=== PATIENT | female | born 1960 | race Two or more races ===

== ENCOUNTER → 2024-06-29 | Outpatient (CLI) | payer BC, SELFPAY ==
[2024-06-29 16:21] LABS: Basophils % (Auto) 1 % (0-2.5); Eosinophils # (Auto) 0.1 Thou/mm3 (0.0-0.5); Eosinophils % (Auto) 1 % (0-10); Hematocrit 40.5 % (36.0-46.0); Hemoglobin 13.7 g/dL (12.0-16.0); Immature Granulocytes % (Auto) 0 % (0-0); Immature Granulocytes Auto 0.01 Thou/mm3 (0.00-0.00); Lymphocytes # (Auto) 1.6 Thou/mm3 (1.0-4.8); Lymphocytes % (Auto) 29 % (10-50); Mean Corpuscular HGB Conc 33.8 g/dl (31.0-37.0); Mean Corpuscular Hemoglobin 30.6 pg (25.0-35.0); Mean Corpuscular Volume 91 fL (80-100); Monocytes # (Auto) 0.4 Thou/mm3 (0.0-0.8); Monocytes % (Auto) 8 % (0-12); Neutrophils # (Auto) 3.4 Thou/mm3 (1.8-7.7); Neutrophils % (Auto) 61 % (37-80); Nucleated Red Blood Cell % 0 /100 WBC (0); Platelet Count 253 Thou/mm3 (140-440); RDW Standard Deviation 41.1 fL (36.4-46.3); Red Blood Count 4.47 Miln/mm3 (4.00-5.20); White Blood Count 5.6 Thou/mm3 (3.6-11.0)
[2024-06-29 16:37] LABS: Alanine Aminotransferase 13 U/L (10-49); Albumin, Serum 4.1 gm/dL (3.4-4.8); Alkaline Phosphatase 68 U/L (46-116); Anion Gap 3 (7-16); Aspartate Amino Transferase 15 U/L (0-34); BUN/Creatinine Ratio 16 Ratio (12-20); Bilirubin,Total 0.3 mg/dL (0.3-1.2); Blood Urea Nitrogen 13 mg/dL (9-23); Calcium 9.2 mg/dL (8.3-10.6); Calcium (Corrected) 9.2 mg/dL (8.5-10.1); Carbon Dioxide 29.8 mMol/L (20.0-31.0); Chloride 107 mMol/L (98-107); Creatinine (Component) 0.8 mg/dL (0.6-1.3); Globulin 2.1 gm/dL (2.3-3.5); Glucose 94 mg/dL (74-106); Osmolality,Calculated 279 (275-295); Potassium 4.1 mMol/L (3.4-5.1); Sodium 140 mMol/L (136-145); Total Protein 6.2 gm/dL (5.7-8.2); eGFR > 60 See Note
== END | disposition home or self-care (01) ==
LOC: SCTO 15:31
PROVIDERS: PCP Family Medicine; Referring Provider Internal Medicine Hematology & Oncology; Visit Provider Internal Medicine Hematology & Oncology
DX: C50.411 Malignant neoplasm of upper-outer quadrant of right female breast (principal)
CPT/HCPCS: 36415; 80053; 85025

== ENCOUNTER 2024-06-30 15:35 | Outpatient (RCR) | payer BC, SELFPAY ==
--- NOTE | 2024-07-10 20:40 | CTCFLWUP_ITS ---
Patient: EMILY STEVEN : 1960 Page 2 of 2 FOLLOW UP NOTE DATE OF SERVICE: 06/30/2024 NAME: EMILY STEVEN ACCOUNT: [id number] : 1960 AGE: 62 DIAGNOSIS: Stage IIb ER positive, IL positive HER-2/mohinder negative invasive ductal carcinoma of the rig ht breast (05/07/2009) completed 10 years of anti-hormonal therapy (10/04/2019). REASON FOR TODAY?S VISIT: This is office follow-up visit. Ms. Steven is here at [facility]. She is clinically doing very well. Denies any complaints. Denies any cough, chest pain, abdominal pain or leg cramps. She is due for her left breast mammogram this month. She is ambulating well without any help. Has good appetite and good energy levels. HISTORY OF PRESENT ILLNESS: Emily Steven is a 62-year-old Telugu-speaking female with fo llowing breast cancer history. 05/07/2009: Patient had a right breast mass excision biopsy biopsy which showed 6.5 x 5.5 x 4.0 cm poo rly differentiated infiltrating ductal carcinoma with lobular carcinoma in situ involving 10% of the tumor. Tumor was E R positive IL positive and HER-2/mohinder negative. 05/17/2009: Right breast modified radical mastectomy was performed. Surgical pathology specimen showe d residual carcinoma. No lymphovascular invasion was identified. 15 right axillary lymph nodes were negative f or metastatic disease. It was staged as pT3 N0 cM0 disease. Following the surgery patient was treated with adjuva nt chemotherapy. She continued on tamoxifen from September 2009 through December 2011 at which point tamoxifen was discontin ued and she was started on Femara. She continues to take Femara since then. 10/04/2019: Letrozole discontinued. Patient has taken anti-hormonal therapy for 10 years. PAST MEDICAL HISTORY: PAST SURGICAL HISTORY: MEDICATIONS: 1. Calcium 600 + D(3) - 1 tab Every other day 2. Zoloft - 50 mg Each Day?Palabra Meds? Medications Last Reconciled by Mary Martini MA on 07/02/2023 ALLERGIES: No Known Drug Allergies REVIEW OF SYSTEMS:?Clone ROS? Neurological: No headache, seizures or blurring of vision. Gastrointestinal: No nausea, vomiting, diarrhea or constipation. Cardiovascular: No palpitations or angina pains. Respiratory: No cough, chest pain or shortness of breath. PHYSICAL EXAMINATION:?ClonePE? VITAL SIGNS: Temperature?97.7, B/P?143/86, Oxygen?Saturation?97% Weight?176?lbs PAIN: 0 - No pain Vitals reviewed Patient alert oriented x 4 S1-S2 Bilateral clear to auscultation No palpable mass in the chest or axilla. LABORATORY DATA: Date Time ASSESSMENT: History of stage IIb ER positive, IL positive HER-2/mohinder negative invasive ductal carcinoma of the rig ht breast Completed 10 years of adjuvant anti-hormonal therapy. No clinical evidence of recurrence left breast screening mammogram annually. I will see her back in clinic in 1 year with CBC, CMP, CEA, CA 15?3 done few days prior to the visit. Electronically Signed by: {Object.Sanct_ID*PnP.NameFL@M}, {Object.Sanct_ID*PnP.Suffix@U} D: {Object.Sanct_Date} T: {Object.Sanct_Time} CC: PCP: Referring: This document was completed utilizing speech recognition software. Grammatical errors, random word in sertions, pronoun errors, and incomplete sentences are an occasional consequence of this system due t o software limitations, ambient noise, and hardware issues. Any formal questions or concerns about th e content, text or information contained within the body of this dictation should be directly address ed to the provider for clarification.
== END 2024-07-23 23:59 | disposition home or self-care (01) ==
LOC: SCTC 15:35
PROVIDERS: PCP Registered Nurse; Referring Provider Registered Nurse; Visit Provider Internal Medicine Hematology & Oncology
DX: Z08 Encounter for follow-up examination after completed treatment for malignant neoplasm (principal); Z85.3 Personal history of malignant neoplasm of breast; Z90.11 Acquired absence of right breast and nipple; Z92.29 Personal history of other drug therapy
CPT/HCPCS: 99212; G0463

== ENCOUNTER → 2025-02-10 | Outpatient (CLI) | payer BC, SELFPAY ==
--- NOTE | 2025-02-10 12:00 | XR_ITS ---
Examination: Ultrasound soft tissue right chest TECHNIQUE: Grayscale sonographic images soft tissue right chest Date and time: February 10, 2025 1155 hours INDICATION: Palpable lump right chest noticed beginning 5 months ago FINDINGS: Spiculated oval mass right chest region 5.2 x 1.5 x 1.7 cm IMPRESSION: Spiculated oval mass at the area concern right chest near the mastectomy incision, 5.2 x 1.5 x 1.7 cm, recommend bilateral breast sonography, CT chest post intravenous contrast follow-up
== END | disposition home or self-care (01) ==
LOC: CDIM 11:41
PROVIDERS: PCP Nurse Practitioner Family; Referring Provider Nurse Practitioner Family; Visit Provider Nurse Practitioner Family
DX: N63.10 Unspecified lump in the right breast, unspecified quadrant (principal)
CPT/HCPCS: 76604

== ENCOUNTER → 2025-02-16 | Outpatient (CLI) | payer BC, SELFPAY ==
[2025-02-16 18:22] LABS: CA 15-3 3.9 U/mL (<32.4); Carcinoembryonic Antigen 1.2 ng/mL (0.0-5.0)
== END | disposition home or self-care (01) ==
PROVIDERS: PCP Nurse Practitioner Family; Referring Provider Nurse Practitioner Family; Visit Provider Nurse Practitioner Family
DX: N63.10 Unspecified lump in the right breast, unspecified quadrant (principal); R53.83 Other fatigue; R92.8 Other abnormal and inconclusive findings on diagnostic imaging of breast; Z85.3 Personal history of malignant neoplasm of breast
CPT/HCPCS: 36415; 82378; 86300; 86304

== ENCOUNTER → 2025-02-21 | Outpatient (CLI) | payer BC, SELFPAY ==
[2025-02-21 13:03] LABS: Alanine Aminotransferase 11 U/L (10-49); Albumin, Serum 4.2 gm/dL (3.4-4.8); Albumin/Globulin Ratio 1.7 (1.2-2.2); Alkaline Phosphatase 58 U/L (46-116); Anion Gap 7 (7-16); Aspartate Amino Transferase 14 U/L (0-34); BUN/Creatinine Ratio 15 Ratio (12-20); Bilirubin,Total 0.5 mg/dL (0.3-1.2); Blood Urea Nitrogen 12 mg/dL (9-23); Calcium 9.2 mg/dL (8.3-10.6); Calcium (Corrected) 9.2 mg/dL (8.5-10.1); Carbon Dioxide 27.4 mMol/L (20.0-31.0); Chloride 108 mMol/L (98-107); Creatinine (Component) 0.8 mg/dL (0.6-1.3); Globulin 2.5 gm/dL (2.3-3.5); Glucose 96 mg/dL (74-106); Osmolality,Calculated 282 (275-295); Potassium 4.0 mMol/L (3.4-5.1); Sodium 142 mMol/L (136-145); Total Protein 6.7 gm/dL (5.7-8.2); eGFR > 60 See Note
== END | disposition home or self-care (01) ==
LOC: COPL 11:38
PROVIDERS: PCP Nurse Practitioner Family; Referring Provider Nurse Practitioner Family; Visit Provider Nurse Practitioner Family
DX: N63.10 Unspecified lump in the right breast, unspecified quadrant (principal); R92.8 Other abnormal and inconclusive findings on diagnostic imaging of breast; Z85.3 Personal history of malignant neoplasm of breast; R53.83 Other fatigue
CPT/HCPCS: 36415; 80053

== ENCOUNTER → 2025-02-22 | Outpatient (CLI) | payer BC, SELFPAY ==
--- NOTE | 2025-02-22 09:00 | XR_ITS ---
Examination: CT chest with intravenous contrast 2-D sagittal and coronal reconstructions Exam date and time: February 22, 2025 0958 hours Comparison July 06, 2009 INDICATIONS: Personal history right breast cancer mastectomy 2008, position diagnosis unspecified lump in the right breast 2 months CTDI:vol (mGy) 11 DLP: (mGycm) 397 Technique: Multiple axial sections of the thorax have been obtained. Sections have been obtained, 3 mm slice thickness. Mediastinal and lung density settings have been obtained. Intravenous contrast administered, 60 cc Isovue-370. 2-D sagittal, coronal images obtained. Low dose protocols were performed. One or more of the following dose reduction techniques were used; automated exposure control, adjustment of the mA and/or KV according to patient size, use of iterative reconstruction technique. Findings: Right breast retroareolar mass indistinct margins, measuring 24 mm x 26 mm, extending to the chest wall No axillary lymphadenopathy No thoracic aortic aneurysm dilatation No pulmonary artery filling defects No paratracheal tracheobronchial or bronchopulmonary adenopathy 2 mm pulmonary nodule left upper lobe image 127 No pneumonia or pulmonary edema No visualized liver or splenic lesion Cholelithiasis Prominent osteopenia IMPRESSION: Right breast retroareolar mass 24 x 26 mm extending to the chest wall, recommend diagnostic mammography, bilateral breast sonography follow-up 2 mm noncalcified pulmonary nodule left upper lobe, with this study as baseline recommend 6 month follow-up CT chest without contrast Cholelithiasis
== END | disposition home or self-care (01) ==
LOC: CCTX 09:02
PROVIDERS: PCP Family Medicine; Referring Provider Nurse Practitioner Family; Visit Provider Nurse Practitioner Family
DX: N63.41 Unspecified lump in right breast, subareolar (principal); R91.1 Solitary pulmonary nodule
CPT/HCPCS: 71260; A4649; Q9967

== ENCOUNTER → 2025-03-08 | Outpatient (CLI) | payer BC, SELFPAY ==
--- NOTE | 2025-03-08 10:30 | XR_ITS ---
Examination: Breast ultrasound complete, bilateral Date and time of exam: March 08, 2025 10:24 AM INDICATIONS: Personal history right breast cancer and mastectomy 2008, patient states palpable lump right breast 2:00 position with pain 5 months, ultrasound soft tissue February 10, 2025 spiculated oval mass right chest 5.2 x 1.7 cm Technique: Real-time grayscale ultrasonographic imaging bilateral breasts, including all 4 quadrants as well as nipple retroareolar and axillary regions. Findings: Sonographic images right breast 10:00 mass indistinct margins 4.1 x 3.0 x 2.8 cm Sonographic images left breast No cystic or solid mass IMPRESSION: BI-RADS Category 4: Suspicious for malignancy Recommend ultrasound-guided biopsy of 10:00 mass right breast indistinct margins 4.1 x 3.0 x 2.8 cm
== END | disposition home or self-care (01) ==
PROVIDERS: PCP Family Medicine; Referring Provider Nurse Practitioner Family; Visit Provider Nurse Practitioner Family
DX: N63.12 Unspecified lump in the right breast, upper inner quadrant (principal)
CPT/HCPCS: 76641

== ENCOUNTER → 2025-03-13 | Outpatient (CLI) | payer BC, SELFPAY ==
--- NOTE | 2025-03-13 10:00 | XR_ITS ---
Examination: Screening digital mammography, unilateral left Computer aided detection 3-D breast Tomosynthesis, unilateral Date and time of exam: March 13, 2025, 0954 hours Compared to mammograms dating to March 07, 2011 Indication: Screening Technique: Nonmagnified MLO, CC views of the left breast to been obtained, reconstructed from 3-D Tomosynthesis images. R2 computer aided detection program utilized for evaluation of suspicious masses and/or abnormal calcifications. 3-D Tomosynthesis images obtained. Findings: The breasts are heterogeneously dense, which may obscure small masses 4 mm nodule 9:00 position left breast Impression: BI-RADS Category 0: Incomplete: Need additional imaging evaluation Recommend follow-up spot tomographic views of 4 mm nodule 9:00 position left breast as well as left breast sonography to complete the workup.
== END | disposition home or self-care (01) ==
LOC: CDIM 09:39
PROVIDERS: Referring Provider Nurse Practitioner Family; Visit Provider Nurse Practitioner Family
DX: Z12.31 Encounter for screening mammogram for malignant neoplasm of breast (principal); N63.25 Unspecified lump in the left breast, overlapping quadrants
CPT/HCPCS: 77063; 77067

== ENCOUNTER → 2025-03-20 | Outpatient (CLI) | payer BC, SELFPAY ==
[2025-03-20 14:32] LABS: Basophils # (Auto) 0.0 Thou/mm3 (0.0-0.2); Basophils % (Auto) 1 % (0-2.5); Eosinophils # (Auto) 0.0 Thou/mm3 (0.0-0.5); Eosinophils % (Auto) 0 % (0-10); Hematocrit 43.7 % (36.0-46.0); Hemoglobin 14.8 g/dL (12.0-16.0); Immature Granulocytes Auto 0.02 Thou/mm3 (0.00-0.00); Lymphocytes # (Auto) 1.8 Thou/mm3 (1.0-4.8); Lymphocytes % (Auto) 24 % (10-50); Mean Corpuscular HGB Conc 33.9 g/dl (31.0-37.0); Mean Corpuscular Hemoglobin 31.0 pg (25.0-35.0); Mean Corpuscular Volume 91 fL (80-100); Monocytes # (Auto) 0.6 Thou/mm3 (0.0-0.8); Monocytes % (Auto) 8 % (0-12); Neutrophils # (Auto) 4.9 Thou/mm3 (1.8-7.7); Neutrophils % (Auto) 67 % (37-80); Nucleated Red Blood Cell # 0.00 Thou/mm3 (0.00-0.00); Nucleated Red Blood Cell % 0 /100 WBC (0); Platelet Count 272 Thou/mm3 (140-440); RDW Standard Deviation 40.6 fL (36.4-46.3); Red Blood Count 4.78 Miln/mm3 (4.00-5.20); White Blood Count 7.3 Thou/mm3 (3.6-11.0)
[2025-03-20 14:39] LABS: Alanine Aminotransferase 12 U/L (10-49); Albumin, Serum 4.6 gm/dL (3.4-4.8); Albumin/Globulin Ratio 1.9 (1.2-2.2); Alkaline Phosphatase 56 U/L (46-116); Anion Gap 9 (7-16); Aspartate Amino Transferase 15 U/L (0-34); BUN/Creatinine Ratio 16 Ratio (12-20); Bilirubin,Total 0.4 mg/dL (0.3-1.2); Blood Urea Nitrogen 13 mg/dL (9-23); Calcium 10.1 mg/dL (8.3-10.6); Calcium (Corrected) 10.1 mg/dL (8.5-10.1); Carbon Dioxide 27.5 mMol/L (20.0-31.0); Chloride 106 mMol/L (98-107); Creatinine (Component) 0.8 mg/dL (0.6-1.3); Globulin 2.4 gm/dL (2.3-3.5); Glucose 94 mg/dL (74-106); Osmolality,Calculated 283 (275-295); Potassium 4.1 mMol/L (3.4-5.1); Sodium 142 mMol/L (136-145); Total Protein 7.0 gm/dL (5.7-8.2); eGFR > 60 See Note
== END | disposition home or self-care (01) ==
LOC: SCTO 13:44
PROVIDERS: PCP Family Medicine; Referring Provider Internal Medicine Hematology & Oncology; Visit Provider Internal Medicine Hematology & Oncology
DX: C50.411 Malignant neoplasm of upper-outer quadrant of right female breast (principal)
CPT/HCPCS: 36415; 80053; 85025

== ENCOUNTER 2025-03-21 14:49 | Outpatient (RCR) | payer BC, SELFPAY ==
--- NOTE | 2025-04-02 21:24 | CTCFLWUP_ITS ---
Patient: EMILY HURT : 1960 Page 2 of 4 FOLLOW UP NOTE DATE OF SERVICE: 03/21/2025 NAME: EMILY HURT ACCOUNT: [id number] : 1960 AGE: 64 INTERVAL HISTORY: Patient is here to discuss right upper medial mastectomy scar biopsy which unfortunately has come back positive. ONCOLOGY HISTORY: DIAGNOSIS: Stage IIb ER positive, PA positive HER-2/mohinder negative invasive ductal carcinoma of the right breast (05/07/2009) completed 10 years of anti-hormonal therapy (10/04/2019). REASON FOR TODAY?S VISIT: Follow-up on the recent biopsy over the right upper medial mastectomy scar DATE OF DIAGNOSIS: 05/07/2009 STAGE/TNM: IIB T3 N0 M0 TREATMENT HISTORY: Care?Plan Start?Date Cycle Day Intent HISTORY OF PRESENT ILLNESS: Emily Hurt is a 64-year-old Citizen Of [place]-speaking female with following breast cancer history. 05/07/2009: Patient had a right breast mass excision biopsy biopsy which showed 6.5 x 5.5 x 4.0 cm poorly differentiated infiltrating ductal carcinoma with lobular carcinoma in situ involving 10% of the tumor. Tumor was ER positive PA positive and HER-2/mohinder negative. 05/17/2009: Right breast modified radical mastectomy was performed. Surgical pathology specimen showed residual carcinoma. No lymphovascular invasion was identified. 15 right axillary lymph nodes were negative for metastatic disease. It was staged as pT3 N0 cM0 disease. Following the surgery patient was treated with adjuvant chemotherapy. She continued on tamoxifen from September 2009 through December 2011 at which point tamoxifen was discontinued and she was started on Femara. She continues to take Femara since then. 10/04/2019: Letrozole discontinued. Patient has taken anti-hormonal therapy for 10 years. 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 Calcium 600 + D(3) - 1 tab Daily 2. Zoloft - 50 mg Each Day Medications Last Reconciled by Mary Martini MA on 03/21/2025 ALLERGIES: No Known Drug Allergies REVIEW OF SYSTEMS: A complete 14-point review of systems was performed and is negative except as noted in interval history. PHYSICAL EXAMINATION: VITAL SIGNS: Temperature?98.3, B/P?160/105, Oxygen?Saturation?97% Weight?164?lbs PAIN: 0 - No pain ECOG Performance Status: None Vitals reviewed Patient alert oriented x 4 S1-S2 Bilateral clear to auscultation No palpable mass in the chest or axilla. LABORATORY DATA: I have personally reviewed and interpreted each of the patient?s relevant lab tests, abnormal findings are below: Date 02/16/25 02/21/25 03/20/25 ??WHITE?BLOOD?COUNT?(Thou/mm3) ? ? 7.3 ??RED?BLOOD?COUNT?(Miln/mm3) ? ? 4.78 ??HEMOGLOBIN?(gm/dl) ? ? 14.8 ??HEMATOCRIT?(%) ? ? 43.7 ??PLATELET?COUNT?(Thou/mm3) ? ? 272 ??NEUTROPHILS?%,?AUTO?(%) ? ? 67 ??LYMPH?%,?AUTO?(%) ? ? 24 ??NEUTROPHILS,?AUTO?(Thou/mm3) ? ? 4.9 ??GLUCOSE,RANDOM?(mg/dL) ? 96 94 ??BLOOD?UREA?NITROGEN?(mg/dL) ? 12 13 ??CREATININE?(mg/dL) ? 0.80 0.80 ??SODIUM?(mmol/L) ? 142 142 ??POTASSIUM?(mmol/L) ? 4.0 4.1 ??CHLORIDE?(mmol/L) ? 108?H 106 ??CrCl?(CandG)?(ml/min) ? 88.76 88.76 ??AST/SGOT?(Unit/L) ? 14 15 ??ALT/SGPT?(Unit/L) ? 11 12 ??ALKALINE?PHOSPHATASE?(Unit/L) ? 58 56 ??BILIRUBIN,?TOTAL?(mg/dL) ? 0.5 0.4 ??PROTEIN?TOTAL?(gm/dl) ? 6.7 7.0 ??ALBUMIN,?SERUM?(gm/dl) ? 4.2 4.6 ??GLOBULIN?(gm/dl) ? 2.5 2.4 ??ALBUMIN/GLOBULIN?RATIO ? 1.7 1.9 ??CALCIUM,?SERUM?(mg/dL) ? 9.2 10.1 ??CALCIUM?SERUM?(CORRECTED)?(mg/dL) ? 9.2 10.1 ??CA?125?(O*)?(Unit/mL) 12.0 ? ? ASSESSMENT/PLAN: Recurrence of the right breast cancer Patient have a history of right breast cancer and that at that time was stage IIb which was hormone positive HER2 negative patient had resection in April 2009 followed by adjuvant chemotherapy. I do not have any data that what kind of chemotherapy patient received. Will get baseline echocardiogram Will do AC followed by Taxol Patient will be given ribociclib plus letrozole in adjuvant setting Patient have local recurrence Presented Dr. Tsai for opinion and port catheter placement Will start chemo JOSUÉ ORDERS: Order # Description [id number] Comprehensive Metabolic Panel - 12 + CBC with Auto Diff + CA 15-3 + MD Follow Up 4 Week RETURN TO CLINIC: I reviewed the diagnosis, prognosis, and recommended treatment/procedure options with the patient (and/or their legal artists' booking representative), including the potential benefits, risks, side effects and alternative therapies. We also discussed the option of no treatment and the possibility of clinical trial participation, if applicable. All questions were addressed, and they demonstrated understanding. They provided informed consent to proceed with the proposed plan of care. BILLING AND COMPLIANCE: I reviewed external records from providers outside my specialty as summarized above. I spent a total of 50 minutes on this patient?s care on the day of their visit excluding time spent related to any billed procedures. This time includes time spent with the patient as well as time spent documenting in the medical record, reviewing patients records and tests, obtaining history, placing orders, communicating with other healthcare professionals, counseling the patient, family or caregiver, and/or care coordination for the diagnoses above. Electronically Signed by: {Object.Sanct_ID*PnP.NameFL@M}, {Object.Sanct_ID*PnP.Suffix@U} D: {Object.Sanct_Date} T: {Object.Sanct_Time} CC: Kellee?Curtis,? PCP: Juwan Snow Referring: Juwan Snow This document was completed utilizing speech recognition software. Grammatical errors, random word insertions, pronoun errors, and incomplete sentences are an occasional consequence of this system due to software limitations, ambient noise, and hardware issues. Any formal questions or concerns about the content, text or information contained within the body of this dictation should be directly addressed to the provider for clarification.
== END 2025-03-23 23:59 | disposition home or self-care (01) ==
LOC: SCTC 14:49
PROVIDERS: PCP Family Medicine; Referring Provider Internal Medicine Hematology & Oncology; Visit Provider Internal Medicine Hematology & Oncology
DX: C50.811 Malignant neoplasm of overlapping sites of right female breast (principal)
CPT/HCPCS: 99212; G0463

== ENCOUNTER 2025-04-20 10:24 | Outpatient (RCR) | payer BC, SELFPAY ==
[2025-04-18 15:30] LABS: Basophils # (Auto) 0.0 Thou/mm3 (0.0-0.2); Basophils % (Auto) 1 % (0-2.5); Eosinophils # (Auto) 0.1 Thou/mm3 (0.0-0.5); Eosinophils % (Auto) 1 % (0-10); Hematocrit 41.2 % (36.0-46.0); Hemoglobin 13.9 g/dL (12.0-16.0); Immature Granulocytes Auto 0.02 Thou/mm3 (0.00-0.00); Lymphocytes # (Auto) 1.8 Thou/mm3 (1.0-4.8); Lymphocytes % (Auto) 27 % (10-50); Mean Corpuscular HGB Conc 33.7 g/dl (31.0-37.0); Mean Corpuscular Hemoglobin 31.0 pg (25.0-35.0); Mean Corpuscular Volume 92 fL (80-100); Monocytes # (Auto) 0.6 Thou/mm3 (0.0-0.8); Monocytes % (Auto) 8 % (0-12); Neutrophils # (Auto) 4.2 Thou/mm3 (1.8-7.7); Neutrophils % (Auto) 63 % (37-80); Nucleated Red Blood Cell # 0.00 Thou/mm3 (0.00-0.00); Nucleated Red Blood Cell % 0 /100 WBC (0); Platelet Count 254 Thou/mm3 (140-440); RDW Standard Deviation 41.2 fL (36.4-46.3); Red Blood Count 4.48 Miln/mm3 (4.00-5.20); White Blood Count 6.6 Thou/mm3 (3.6-11.0)
[2025-04-18 15:47] LABS: Alanine Aminotransferase 11 U/L (10-49); Albumin, Serum 4.2 gm/dL (3.4-4.8); Albumin/Globulin Ratio 2.0 (1.2-2.2); Alkaline Phosphatase 62 U/L (46-116); Anion Gap 10 (7-16); Aspartate Amino Transferase 13 U/L (0-34); BUN/Creatinine Ratio 13 Ratio (12-20); Bilirubin,Total 0.5 mg/dL (0.3-1.2); Blood Urea Nitrogen 12 mg/dL (9-23); Calcium 10.1 mg/dL (8.3-10.6); Calcium (Corrected) 10.1 mg/dL (8.5-10.1); Carbon Dioxide 26.4 mMol/L (20.0-31.0); Chloride 106 mMol/L (98-107); Creatinine (Component) 0.9 mg/dL (0.6-1.3); Globulin 2.1 gm/dL (2.3-3.5); Glucose 94 mg/dL (74-106); Osmolality,Calculated 282 (275-295); Potassium 3.5 mMol/L (3.4-5.1); Sodium 142 mMol/L (136-145); Total Protein 6.3 gm/dL (5.7-8.2); eGFR > 60 See Note
[2025-04-18 16:06] LABS: CA 15-3 7.0 U/mL (<32.4)
== END 2025-04-23 23:59 | disposition home or self-care (01) ==
LOC: SCTC 10:24
PROVIDERS: PCP Family Medicine; Referring Provider Family Medicine; Visit Provider Internal Medicine Hematology & Oncology
DX: Z51.11 Encounter for antineoplastic chemotherapy (principal); C50.811 Malignant neoplasm of overlapping sites of right female breast; Z17.0 Estrogen receptor positive status [ER+]; Z17.21 Progesterone receptor positive status; Z17.32 Human epidermal growth factor receptor 2 negative status
CPT/HCPCS: 36591; 80053; 85025; 86300; 96367; 96372; 96375; 96413; 96417; A4216; J1100; J1453; J1642; J2405; J2506; J7040; J7050; J9000; J9075

== ENCOUNTER 2025-05-18 11:33 | Outpatient (RCR) | payer BC, SELFPAY ==
[2025-05-02 16:47] LABS: Collection Type, Urine Voided
[2025-05-02 16:57] LABS: Basophils # (Auto) 0.1 Thou/mm3 (0.0-0.2); Basophils % (Auto) 1 % (0-2.5); Eosinophils # (Auto) 0.0 Thou/mm3 (0.0-0.5); Eosinophils % (Auto) 0 % (0-10); Hematocrit 36.0 % (36.0-46.0); Hemoglobin 12.1 g/dL (12.0-16.0); Immature Granulocytes Auto 0.80 Thou/mm3 (0.00-0.00); Lymphocytes # (Auto) 1.5 Thou/mm3 (1.0-4.8); Lymphocytes % (Auto) 22 % (10-50); Mean Corpuscular HGB Conc 33.6 g/dl (31.0-37.0); Mean Corpuscular Hemoglobin 30.4 pg (25.0-35.0); Mean Corpuscular Volume 91 fL (80-100); Monocytes # (Auto) 0.5 Thou/mm3 (0.0-0.8); Monocytes % (Auto) 7 % (0-12); Neutrophils # (Auto) 4.2 Thou/mm3 (1.8-7.7); Neutrophils % (Auto) 59 % (37-80); Nucleated Red Blood Cell # 0.00 Thou/mm3 (0.00-0.00); Nucleated Red Blood Cell % 0 /100 WBC (0); Platelet Count 274 Thou/mm3 (140-440); RDW Standard Deviation 38.9 fL (36.4-46.3); Red Blood Count 3.98 Miln/mm3 (4.00-5.20); White Blood Count 7.1 Thou/mm3 (3.6-11.0)
[2025-05-02 17:18] LABS: Anion Gap 11 (7-16); Blood Urea Nitrogen 6 mg/dL (9-23); Carbon Dioxide 26.6 mMol/L (20.0-31.0); Chloride 103 mMol/L (98-107); Creatinine (Component) 0.9 mg/dL (0.6-1.3); Potassium 3.8 mMol/L (3.4-5.1); Sodium 141 mMol/L (136-145)
[2025-05-02 17:19] LABS: Alanine Aminotransferase 11 U/L (10-49); Albumin, Serum 3.6 gm/dL (3.4-4.8); Albumin/Globulin Ratio 1.7 (1.2-2.2); Alkaline Phosphatase 58 U/L (46-116); Aspartate Amino Transferase 16 U/L (0-34); BUN/Creatinine Ratio 7 Ratio (12-20); Bilirubin,Total 0.2 mg/dL (0.3-1.2); Calcium 9.2 mg/dL (8.3-10.6); Calcium (Corrected) 9.5 mg/dL (8.5-10.1); Globulin 2.1 gm/dL (2.3-3.5); Glucose 95 mg/dL (74-106); Osmolality,Calculated 278 (275-295); Total Protein 5.7 gm/dL (5.7-8.2); eGFR > 60 See Note
[2025-05-02 17:28] LABS: Bacteria,Urine Rare; Bilirubin,Urine Negative (Negative); Blood,Urine Negative (Negative); Clarity,Urine Clear (Clear/Hazy); Color,Urine Colorless (Lt Yel-Yel); Glucose, Urine Negative (Negative); Ketones,Urine Negative (Negative); Leukocyte Esterase,Urine Negative (Negative); Nitrite,Urine Negative (Negative); PH,Urine 6.5 (5.0-7.0); Protein,Urine Negative (Neg - Trace); RBC,Urine < 1 /hpf (0-3); Specific Gravity,Urine 1.004 (1.001-1.035); Squamous Epithelial Cell,Urine < 1 /hpf (0-5); Urobilinogen,Urine Negative mg/dL (0.0-1.0); WBC,Urine 5 /hpf (0-5)
[2025-05-02 20:55] LABS: CA 15-3 4.9 U/mL (<32.4)
[2025-05-16 12:39] LABS: Basophils # (Auto) 0.1 Thou/mm3 (0.0-0.2); Basophils % (Auto) 1 % (0-2.5); Eosinophils # (Auto) 0.0 Thou/mm3 (0.0-0.5); Eosinophils % (Auto) 0 % (0-10); Hematocrit 35.5 % (36.0-46.0); Hemoglobin 12.4 g/dL (12.0-16.0); Immature Granulocytes Auto 1.61 Thou/mm3 (0.00-0.00); Lymphocytes # (Auto) 1.4 Thou/mm3 (1.0-4.8); Lymphocytes % (Auto) 14 % (10-50); Mean Corpuscular HGB Conc 34.9 g/dl (31.0-37.0); Mean Corpuscular Hemoglobin 30.7 pg (25.0-35.0); Mean Corpuscular Volume 88 fL (80-100); Monocytes # (Auto) 0.8 Thou/mm3 (0.0-0.8); Monocytes % (Auto) 8 % (0-12); Neutrophils # (Auto) 6.0 Thou/mm3 (1.8-7.7); Neutrophils % (Auto) 61 % (37-80); Nucleated Red Blood Cell # 0.00 Thou/mm3 (0.00-0.00); Nucleated Red Blood Cell % 0 /100 WBC (0); Platelet Count 221 Thou/mm3 (140-440); RDW Standard Deviation 39.4 fL (36.4-46.3); Red Blood Count 4.04 Miln/mm3 (4.00-5.20); White Blood Count 9.9 Thou/mm3 (3.6-11.0)
[2025-05-16 13:07] LABS: Alanine Aminotransferase 13 U/L (10-49); Albumin, Serum 4.0 gm/dL (3.4-4.8); Albumin/Globulin Ratio 2.0 (1.2-2.2); Alkaline Phosphatase 61 U/L (46-116); Anion Gap 8 (7-16); Aspartate Amino Transferase 13 U/L (0-34); BUN/Creatinine Ratio 8 Ratio (12-20); Bilirubin,Total 0.2 mg/dL (0.3-1.2); Blood Urea Nitrogen 6 mg/dL (9-23); Calcium 10.0 mg/dL (8.3-10.6); Calcium (Corrected) 10.0 mg/dL (8.5-10.1); Carbon Dioxide 28.5 mMol/L (20.0-31.0); Chloride 104 mMol/L (98-107); Creatinine (Component) 0.8 mg/dL (0.6-1.3); Globulin 2.0 gm/dL (2.3-3.5); Glucose 103 mg/dL (74-106); Osmolality,Calculated 277 (275-295); Potassium 3.7 mMol/L (3.4-5.1); Sodium 140 mMol/L (136-145); Total Protein 6.0 gm/dL (5.7-8.2); eGFR > 60 See Note
[2025-05-16 13:21] LABS: CA 15-3 5.6 U/mL (<32.4)
[2025-05-16 15:12] LABS: Path Review Blood Smear Sent to Pathologist
--- NOTE | 2025-05-21 23:41 | CTCFLWUP_ITS ---
Patient: EMILY HURT : 1960 Page 2 of 3 FOLLOW UP NOTE DATE OF SERVICE: 05/15/2025 NAME: EMILY HURT ACCOUNT: [id number] : 1960 AGE: 64 INTERVAL HISTORY: Emily Hurt, a 64-year-old female, presented for management of recurrent breast cancer. Her history includes breast cancer in 2008 treated with mastectomy and 5 years of tamoxifen. Currently undergoing neoadjuvant chemotherapy with plans for four intensive cycles followed by weekly Taxol treatments. Small lymph nodules in liver and lungs are being monitored. The treatment plan includes completing chemotherapy, surgery with Dr. Peters, radiation therapy, anti-endocrine therapy with ribociclib, Mercedes testing, and using cold therapy during Taxol infusions to prevent worsening of pre-existing neuropathy. ONCOLOGY HISTORY: DIAGNOSIS: Stage IIb ER positive, [place] positive HER-2/mohinder negative invasive ductal carcinoma of the right breast (05/07/2009) completed 10 years of anti-hormonal therapy (10/04/2019). REASON FOR TODAY?S VISIT: Follow-up on the recent biopsy over the right upper medial mastectomy scar DATE OF DIAGNOSIS: 05/07/2009 STAGE/TNM: IIB T3 N0 M0 TREATMENT HISTORY: Care?Plan Start?Date Cycle Day Intent AC?4?cy?DD?Taxol?wkly?12?wks 04/09/2025 2 7 Induction-Primary HISTORY OF PRESENT ILLNESS: Emily Hurt is a 64-year-old Zimbabwean-speaking female with following breast cancer history. 05/07/2009: Patient had a right breast mass excision biopsy biopsy which showed 6.5 x 5.5 x 4.0 cm poorly differentiated infiltrating ductal carcinoma with lobular carcinoma in situ involving 10% of the tumor. Tumor was ER positive KS positive and HER-2/mohinder negative. 05/17/2009: Right breast modified radical mastectomy was performed. Surgical pathology specimen showed residual carcinoma. No lymphovascular invasion was identified. 15 right axillary lymph nodes were negative for metastatic disease. It was staged as pT3 N0 cM0 disease. Following the surgery patient was treated with adjuvant chemotherapy. She continued on tamoxifen from September 2009 through December 2011 at which point tamoxifen was discontinued and she was started on Femara. She continues to take Femara since then. 10/04/2019: Letrozole discontinued. Patient has taken anti-hormonal therapy for 10 years. 03/13/2025 mammogram showed 4 mm nodule at the left breast 03/08/2024 over the mastectomy site site showed 4.1 x 3 x 2.8 cm indistinct mass margin ultrasound-guided biopsy of the mass was completed and showed invasive lobular carcinoma 02/22/2025 CT scan of the chest showed a 24 x 26 mm right breast retroareolar areolar mass extending to the chest wall and 2 mm nodule in the left upper lobe imaging 127 no other lesions noted 03/16/2025 reoccurrence of invasive lobular carcinoma with pleomorphic features ER/KS positive HER2 negative over the upper medial mastectomy scar no lymphovascular invasion identified at least T1c OTHER MEDICAL HISTORY/CONDITIONS: FAMILY HISTORY: 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 Calcium 600 + D(3) - 1 tab Daily 2. dexamethasone - 4 mg 2 tab Daily 3. Emend - 125 mg (1)- 80 mg (2) 1 Capsule Daily 4. Lidocaine Viscous - 2 % 5 mL Daily 5. nystatin - 100,000 unit/mL 5 mL Daily 6. ondansetron - 8 mg 1 tab Daily 7. prochlorperazine maleate - 5 mg 1 tab Daily 8. Zoloft - 50 mg Each Day Medications Last Reconciled by Nancy Hopson MD on 05/15/2025 ALLERGIES: fosaprepitant dimeglumine REVIEW OF SYSTEMS: A complete 14-point review of systems was performed and is negative except as noted in interval history. PHYSICAL EXAMINATION: VITAL SIGNS: Temperature?97.9, B/P?116/76, Oxygen?Saturation?98% Weight?165?lbs (Change?since?05/04/25:?-5.6?lbs) PAIN: 0 - No pain Vitals reviewed Patient alert oriented x 4 S1-S2 Bilateral clear to auscultation No palpable mass in the chest or axilla. LABORATORY DATA: I have personally reviewed and interpreted each of the patient?s relevant lab tests, abnormal findings are below: Date 05/02/25 05/16/25 ??WHITE?BLOOD?COUNT?(Thou/mm3) 7.1 9.9 ??RED?BLOOD?COUNT?(Miln/mm3) 3.98?L 4.04 ??HEMOGLOBIN?(gm/dl) 12.1 12.4 ??HEMATOCRIT?(%) 36.0 35.5?L ??PLATELET?COUNT?(Thou/mm3) 274 221 ??NEUTROPHILS?%,?AUTO?(%) 59 61 ??LYMPH?%,?AUTO?(%) 22 14 ??NEUTROPHILS,?AUTO?(Thou/mm3) 4.2 6.0 ??GLUCOSE,RANDOM?(mg/dL) 95 103 ??BLOOD?UREA?NITROGEN?(mg/dL) 6?L 6?L ??CREATININE?(mg/dL) 0.90 0.80 ??SODIUM?(mmol/L) 141 140 ??POTASSIUM?(mmol/L) 3.8 3.7 ??CHLORIDE?(mmol/L) 103 104 ??CrCl?(CandG)?(ml/min) 76.39 85.00 ??AST/SGOT?(Unit/L) 16 13 ??ALT/SGPT?(Unit/L) 11 13 ??ALKALINE?PHOSPHATASE?(Unit/L) 58 61 ??BILIRUBIN,?TOTAL?(mg/dL) 0.2?L 0.2?L ??PROTEIN?TOTAL?(gm/dl) 5.7 6.0 ??ALBUMIN,?SERUM?(gm/dl) 3.6 4.0 ??GLOBULIN?(gm/dl) 2.1?L 2.0?L ??ALBUMIN/GLOBULIN?RATIO 1.7 2.0 ??CALCIUM,?SERUM?(mg/dL) 9.2 10.0 ??CALCIUM?SERUM?(CORRECTED)?(mg/dL) 9.5 10.0 ASSESSMENT/PLAN: Recurrent Breast Cancer Assessment: Patient has a history of breast cancer in 2008, treated with tamoxifen for 5 years and simple mastectomy without radiation. Current biopsy has confirmed tumor recurrence. Patient is undergoing neoadjuvant chemotherapy. There is a small millimeter lymph nodule in the liver and lungs, which is not believed to be cancerous at this time. The patient was previously undertreated, and the current treatment plan aims to be more comprehensive. Plan: - Continue current neoadjuvant chemotherapy regimen - After completion of chemotherapy: - Proceed with surgery (to be performed by Dr. Peters) - If surgery is successful in removing cancer, plan for radiation therapy - Initiate anti-endocrine therapy with CDK inhibitor (ribociclib) - Order Mercedes test - Perform EKG and echocardiogram prior to starting ribociclib - Conduct full body scan after completion of chemotherapy - Weekly Taxol treatments (12 in total) following the current chemotherapy regimen - Patient to use cold therapy (gloves and mittens) during Taxol infusions to prevent neuropathy - Monitor blood work before each treatmentORDERS: Order # Description RETURN TO CLINIC: I reviewed the diagnosis, prognosis, and recommended treatment/procedure options with the patient (and/or their legal patient registration representative), including the potential benefits, risks, side effects and alternative therapies. We also discussed the option of no treatment and the possibility of clinical trial participation, if applicable. All questions were addressed, and they demonstrated understanding. They provided informed consent to proceed with the proposed plan of care. BILLING AND COMPLIANCE: I reviewed external records from providers outside my specialty as summarized above. I spent a total of 50 minutes on this patient?s care on the day of their visit excluding time spent related to any billed procedures. This time includes time spent with the patient as well as time spent documenting in the medical record, reviewing patients records and tests, obtaining history, placing orders, communicating with other healthcare professionals, counseling the patient, family or caregiver, and/or care coordination for the diagnoses above. Electronically Signed by: Juwan Snow MD T: 11:38 PM CC: Kellee?Curtis? PCP: Mary Akins Referring: Mary Akins This document was completed utilizing speech recognition software. Grammatical errors, random word insertions, pronoun errors, and incomplete sentences are an occasional consequence of this system due to software limitations, ambient noise, and hardware issues. Any formal questions or concerns about the content, text or information contained within the body of this dictation should be directly addressed to the provider for clarification.
== END 2025-05-23 23:59 | disposition home or self-care (01) ==
LOC: SCTC 11:33
PROVIDERS: PCP Family Medicine; Referring Provider Family Medicine; Visit Provider Internal Medicine Hematology & Oncology
DX: Z51.11 Encounter for antineoplastic chemotherapy (principal); C50.811 Malignant neoplasm of overlapping sites of right female breast; Z17.21 Progesterone receptor positive status; Z17.0 Estrogen receptor positive status [ER+]; Z17.32 Human epidermal growth factor receptor 2 negative status; Z90.11 Acquired absence of right breast and nipple
CPT/HCPCS: 36591; 80053; 81001; 85025; 86300; 87086; 96367; 96372; 96374; 96411; 96413; 96417; 99212; A4216; J1100; J1642; J2405; J2997; J3490; J7030; J7050; J9000; J9075; Q5111; G0463

== ENCOUNTER 2025-06-21 08:22 | Outpatient (RCR) | payer BC, SELFPAY ==
[2025-05-30 15:08] LABS: Basophils # (Auto) 0.1 Thou/mm3 (0.0-0.2); Basophils % (Auto) 1 % (0-2.5); Eosinophils # (Auto) 0.0 Thou/mm3 (0.0-0.5); Eosinophils % (Auto) 0 % (0-10); Hematocrit 32.5 % (36.0-46.0); Hemoglobin 11.2 g/dL (12.0-16.0); Immature Granulocytes Auto 0.89 Thou/mm3 (0.00-0.00); Lymphocytes # (Auto) 1.0 Thou/mm3 (1.0-4.8); Lymphocytes % (Auto) 12 % (10-50); Mean Corpuscular HGB Conc 34.5 g/dl (31.0-37.0); Mean Corpuscular Hemoglobin 31.0 pg (25.0-35.0); Mean Corpuscular Volume 90 fL (80-100); Monocytes # (Auto) 0.8 Thou/mm3 (0.0-0.8); Monocytes % (Auto) 10 % (0-12); Neutrophils # (Auto) 5.4 Thou/mm3 (1.8-7.7); Neutrophils % (Auto) 66 % (37-80); Nucleated Red Blood Cell # 0.03 Thou/mm3 (0.00-0.00); Nucleated Red Blood Cell % 0 /100 WBC (0); Platelet Count 247 Thou/mm3 (140-440); RDW Standard Deviation 41.1 fL (36.4-46.3); Red Blood Count 3.61 Miln/mm3 (4.00-5.20); White Blood Count 8.2 Thou/mm3 (3.6-11.0)
[2025-05-30 15:26] LABS: Alanine Aminotransferase 12 U/L (10-49); Albumin, Serum 4.1 gm/dL (3.4-4.8); Albumin/Globulin Ratio 2.0 (1.2-2.2); Alkaline Phosphatase 65 U/L (46-116); Anion Gap 10 (7-16); Aspartate Amino Transferase 14 U/L (0-34); BUN/Creatinine Ratio 7 Ratio (12-20); Bilirubin,Total 0.2 mg/dL (0.3-1.2); Blood Urea Nitrogen < 5 mg/dL (9-23); Calcium 9.2 mg/dL (8.3-10.6); Calcium (Corrected) 9.2 mg/dL (8.5-10.1); Carbon Dioxide 25.8 mMol/L (20.0-31.0); Chloride 106 mMol/L (98-107); Creatinine (Component) 0.7 mg/dL (0.6-1.3); Globulin 2.1 gm/dL (2.3-3.5); Glucose 131 mg/dL (74-106); Osmolality,Calculated 282 (275-295); Potassium 3.7 mMol/L (3.4-5.1); Sodium 142 mMol/L (136-145); Total Protein 6.2 gm/dL (5.7-8.2); eGFR > 60 See Note
[2025-05-30 15:42] LABS: CA 15-3 7.5 U/mL (<32.4)
[2025-06-13 12:43] LABS: Basophils # (Auto) 0.1 Thou/mm3 (0.0-0.2); Basophils % (Auto) 1 % (0-2.5); Eosinophils # (Auto) 0.0 Thou/mm3 (0.0-0.5); Eosinophils % (Auto) 0 % (0-10); Hematocrit 31.8 % (36.0-46.0); Hemoglobin 10.6 g/dL (12.0-16.0); Immature Granulocytes Auto 0.58 Thou/mm3 (0.00-0.00); Lymphocytes # (Auto) 0.8 Thou/mm3 (1.0-4.8); Lymphocytes % (Auto) 13 % (10-50); Mean Corpuscular HGB Conc 33.3 g/dl (31.0-37.0); Mean Corpuscular Hemoglobin 31.0 pg (25.0-35.0); Mean Corpuscular Volume 93 fL (80-100); Monocytes # (Auto) 0.7 Thou/mm3 (0.0-0.8); Monocytes % (Auto) 11 % (0-12); Neutrophils # (Auto) 4.0 Thou/mm3 (1.8-7.7); Neutrophils % (Auto) 66 % (37-80); Nucleated Red Blood Cell # 0.04 Thou/mm3 (0.00-0.00); Nucleated Red Blood Cell % 1 /100 WBC (0); Platelet Count 254 Thou/mm3 (140-440); RDW Standard Deviation 49.8 fL (36.4-46.3); Red Blood Count 3.42 Miln/mm3 (4.00-5.20); White Blood Count 6.0 Thou/mm3 (3.6-11.0)
[2025-06-13 13:01] LABS: Alanine Aminotransferase 14 U/L (10-49); Albumin, Serum 4.1 gm/dL (3.4-4.8); Albumin/Globulin Ratio 2.4 (1.2-2.2); Alkaline Phosphatase 59 U/L (46-116); Anion Gap 9 (7-16); Aspartate Amino Transferase 18 U/L (0-34); BUN/Creatinine Ratio 7 Ratio (12-20); Bilirubin,Total 0.2 mg/dL (0.3-1.2); Blood Urea Nitrogen < 5 mg/dL (9-23); Calcium 8.9 mg/dL (8.3-10.6); Calcium (Corrected) 8.9 mg/dL (8.5-10.1); Carbon Dioxide 26.7 mMol/L (20.0-31.0); Chloride 105 mMol/L (98-107); Creatinine (Component) 0.7 mg/dL (0.6-1.3); Globulin 1.7 gm/dL (2.3-3.5); Glucose 126 mg/dL (74-106); Osmolality,Calculated 280 (275-295); Potassium 3.8 mMol/L (3.4-5.1); Sodium 141 mMol/L (136-145); Total Protein 5.8 gm/dL (5.7-8.2); eGFR > 60 See Note
[2025-06-13 13:18] LABS: CA 15-3 8.3 U/mL (<32.4)
[2025-06-20 09:53] LABS: Basophils # (Auto) 0.1 Thou/mm3 (0.0-0.2); Basophils % (Auto) 1 % (0-2.5); Eosinophils # (Auto) 0.0 Thou/mm3 (0.0-0.5); Eosinophils % (Auto) 0 % (0-10); Hematocrit 31.7 % (36.0-46.0); Hemoglobin 10.4 g/dL (12.0-16.0); Immature Granulocytes Auto 0.06 Thou/mm3 (0.00-0.00); Lymphocytes # (Auto) 0.6 Thou/mm3 (1.0-4.8); Lymphocytes % (Auto) 13 % (10-50); Mean Corpuscular HGB Conc 32.8 g/dl (31.0-37.0); Mean Corpuscular Hemoglobin 31.0 pg (25.0-35.0); Mean Corpuscular Volume 95 fL (80-100); Monocytes # (Auto) 0.3 Thou/mm3 (0.0-0.8); Monocytes % (Auto) 8 % (0-12); Neutrophils # (Auto) 3.4 Thou/mm3 (1.8-7.7); Neutrophils % (Auto) 77 % (37-80); Nucleated Red Blood Cell # 0.00 Thou/mm3 (0.00-0.00); Nucleated Red Blood Cell % 0 /100 WBC (0); Platelet Count 362 Thou/mm3 (140-440); RDW Standard Deviation 55.1 fL (36.4-46.3); Red Blood Count 3.35 Miln/mm3 (4.00-5.20); White Blood Count 4.5 Thou/mm3 (3.6-11.0)
[2025-06-20 10:11] LABS: Alanine Aminotransferase 17 U/L (10-49); Albumin, Serum 4.2 gm/dL (3.4-4.8); Albumin/Globulin Ratio 2.5 (1.2-2.2); Alkaline Phosphatase 51 U/L (46-116); Anion Gap 11 (7-16); Aspartate Amino Transferase 17 U/L (0-34); BUN/Creatinine Ratio 10 Ratio (12-20); Bilirubin,Total 0.6 mg/dL (0.3-1.2); Blood Urea Nitrogen 7 mg/dL (9-23); Calcium 8.7 mg/dL (8.3-10.6); Calcium (Corrected) 8.7 mg/dL (8.5-10.1); Carbon Dioxide 25.2 mMol/L (20.0-31.0); Chloride 105 mMol/L (98-107); Creatinine (Component) 0.7 mg/dL (0.6-1.3); Globulin 1.7 gm/dL (2.3-3.5); Glucose 148 mg/dL (74-106); Osmolality,Calculated 282 (275-295); Potassium 3.8 mMol/L (3.4-5.1); Sodium 141 mMol/L (136-145); Total Protein 5.9 gm/dL (5.7-8.2); eGFR > 60 See Note
[2025-06-20 10:29] LABS: CA 15-3 7.2 U/mL (<32.4); Carcinoembryonic Antigen < 0.5 ng/mL (0.0-5.0)
== END 2025-06-23 23:59 | disposition home or self-care (01) ==
LOC: SCTC 08:22
PROVIDERS: PCP Family Medicine; Referring Provider Internal Medicine Hematology & Oncology; Visit Provider Internal Medicine Hematology & Oncology
DX: Z51.11 Encounter for antineoplastic chemotherapy (principal); C50.411 Malignant neoplasm of upper-outer quadrant of right female breast; Z17.0 Estrogen receptor positive status [ER+]; Z17.21 Progesterone receptor positive status; Z17.32 Human epidermal growth factor receptor 2 negative status; Z90.11 Acquired absence of right breast and nipple; R91.1 Solitary pulmonary nodule; K76.89 Other specified diseases of liver
CPT/HCPCS: 36591; 80053; 82378; 85025; 86300; 96367; 96372; 96375; 96413; 96417; A4216; J1100; J1642; J2405; J3490; J7040; J7050; J9000; J9075; J9267; Q5111; A9270

== ENCOUNTER 2025-07-19 07:49 | Outpatient (RCR) | payer BC, SELFPAY ==
[2025-06-27 11:18] LABS: Basophils # (Auto) 0.0 Thou/mm3 (0.0-0.2); Basophils % (Auto) 1 % (0-2.5); Eosinophils # (Auto) 0.0 Thou/mm3 (0.0-0.5); Eosinophils % (Auto) 0 % (0-10); Hematocrit 30.3 % (36.0-46.0); Hemoglobin 10.2 g/dL (12.0-16.0); Immature Granulocytes Auto 0.06 Thou/mm3 (0.00-0.00); Lymphocytes # (Auto) 0.5 Thou/mm3 (1.0-4.8); Lymphocytes % (Auto) 12 % (10-50); Mean Corpuscular HGB Conc 33.7 g/dl (31.0-37.0); Mean Corpuscular Hemoglobin 32.6 pg (25.0-35.0); Mean Corpuscular Volume 97 fL (80-100); Monocytes # (Auto) 0.3 Thou/mm3 (0.0-0.8); Monocytes % (Auto) 7 % (0-12); Neutrophils # (Auto) 3.5 Thou/mm3 (1.8-7.7); Neutrophils % (Auto) 79 % (37-80); Nucleated Red Blood Cell # 0.00 Thou/mm3 (0.00-0.00); Nucleated Red Blood Cell % 0 /100 WBC (0); Platelet Count 281 Thou/mm3 (140-440); RDW Standard Deviation 59.1 fL (36.4-46.3); Red Blood Count 3.13 Miln/mm3 (4.00-5.20); White Blood Count 4.4 Thou/mm3 (3.6-11.0)
[2025-06-27 11:50] LABS: Alanine Aminotransferase 19 U/L (10-49); Albumin, Serum 4.2 gm/dL (3.4-4.8); Albumin/Globulin Ratio 2.0 (1.2-2.2); Alkaline Phosphatase 48 U/L (46-116); Anion Gap 9 (7-16); Aspartate Amino Transferase < 8 U/L (0-34); BUN/Creatinine Ratio 7 Ratio (12-20); Bilirubin,Total 0.5 mg/dL (0.3-1.2); Blood Urea Nitrogen < 5 mg/dL (9-23); Calcium 9.4 mg/dL (8.3-10.6); Calcium (Corrected) 9.4 mg/dL (8.5-10.1); Carbon Dioxide 26.6 mMol/L (20.0-31.0); Chloride 103 mMol/L (98-107); Creatinine (Component) 0.7 mg/dL (0.6-1.3); Globulin 2.1 gm/dL (2.3-3.5); Glucose 103 mg/dL (74-106); Osmolality,Calculated 274 (275-295); Potassium 3.8 mMol/L (3.4-5.1); Sodium 139 mMol/L (136-145); Total Protein 6.3 gm/dL (5.7-8.2); eGFR > 60 See Note
[2025-06-27 12:49] LABS: CA 15-3 6.2 U/mL (<32.4)
--- NOTE | 2025-07-04 20:46 | CTCFLWUP_ITS ---
Patient: EMILY HURT : 1960 Page 2 of 2 FOLLOW UP NOTE DATE OF SERVICE: 06/29/2025 NAME: EMILY HURT ACCOUNT: [id number] : 1960 AGE: 64 INTERVAL HISTORY: Emily Hurt, a 64-year-old female, presented for management of recurrent breast cancer. Her history includes breast cancer in 2008 treated with mastectomy and 5 years of tamoxifen. Plan is to cont current chemotherapy followed by surgery and radiation. Will do ribociclib after surgery . ONCOLOGY HISTORY:?[facility] On[facility] Hx? 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 REASON FOR TODAY?S VISIT: Follow-up on the recent biopsy over the right upper medial mastectomy scar DATE OF DIAGNOSIS: 05/07/2009 STAGE/TNM: IIB T3 N0 M0 TREATMENT HISTORY: Care?Plan Start?Date Cycle Day Intent AC?4?cy?DD?Taxol?wkly?12?wks 04/09/2025 2 7 Induction-Primary HISTORY OF PRESENT ILLNESS: Emily Hurt is a 64-year-old Latvian-speaking female with following breast cancer history. 05/07/2009: Patient had a right breast mass excision biopsy biopsy which showed 6.5 x 5.5 x 4.0 cm poorly differentiated infiltrating ductal carcinoma with lobular carcinoma in situ involving 10% of the tumor. Tumor was ER positive NM positive and HER-2/mohinder negative. 05/17/2009: Right breast modified radical mastectomy was performed. Surgical pathology specimen showed residual carcinoma. No lymphovascular invasion was identified. 15 right axillary lymph nodes were negative for metastatic disease. It was staged as pT3 N0 cM0 disease. Following the surgery patient was treated with adjuvant chemotherapy. She continued on tamoxifen from September 2009 through December 2011 at which point tamoxifen was discontinued and she was started on Femara. She continues to take Femara since then. 10/04/2019: Letrozole discontinued. Patient has taken anti-hormonal therapy for 10 years. 03/13/2025 mammogram showed 4 mm nodule at the left breast 03/08/2024 over the mastectomy site site showed 4.1 x 3 x 2.8 cm indistinct mass margin ultrasound-guided biopsy of the mass was completed and showed invasive lobular carcinoma 02/22/2025 CT scan of the chest showed a 24 x 26 mm right breast retroareolar areolar mass extending to the chest wall and 2 mm nodule in the left upper lobe imaging 127 no other lesions noted 03/16/2025 reoccurrence of invasive lobular carcinoma with pleomorphic features ER/NM positive HER2 negative over the upper medial mastectomy scar no lymphovascular invasion identified at least T1c OTHER MEDICAL HISTORY/CONDITIONS: FAMILY HISTORY: ?Clone Family Hx? 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 Calcium 600 + D(3) - 1 tab Daily 2. dexamethasone - 4 mg 2 tab Daily 3. Emend - 125 mg (1)- 80 mg (2) 1 Capsule Daily 4. Lidocaine Viscous - 2 % 5 mL Daily 5. nystatin - 100,000 unit/mL 5 mL Daily 6. omeprazole - 40 mg 1 Capsule empty stomach in morning ,1 hr before eating 7. ondansetron - 8 mg 1 tab Daily 8. prochlorperazine maleate - 5 mg 1 tab Daily 9. Zoloft - 50 mg Each Day?Palabra Meds? Medications Last Reconciled by Nancy Hopson MD on 06/29/2025 ALLERGIES: fosaprepitant dimeglumine REVIEW OF SYSTEMS: A complete 14-point review of systems was performed and is negative except as noted in interval history. PHYSICAL EXAMINATION:?CloneBlock PE? VITAL SIGNS: Temperature?98, B/P?110/68, Oxygen?Saturation?95% Weight?157?lbs (Change?since?06/28/25:?-1.6?lbs) PAIN: 0 - No pain ECOG Performance Status: 0 - Asymptomatic and fully active Vitals reviewed Patient alert oriented x 4 S1-S2 Bilateral clear to auscultation No palpable mass in the chest or axilla. Chest mass is smaller LABORATORY DATA: I have personally reviewed and interpreted each of the patient?s relevant lab tests, abnormal findings are below: Date 06/20/25 06/27/25 ??WHITE?BLOOD?COUNT?(Thou/mm3) 4.5 4.4 ??RED?BLOOD?COUNT?(Miln/mm3) 3.35?L 3.13?L ??HEMOGLOBIN?(gm/dl) 10.4?L 10.2?L ??HEMATOCRIT?(%) 31.7?L 30.3?L ??PLATELET?COUNT?(Thou/mm3) 362 281 ??NEUTROPHILS?%,?AUTO?(%) 77 79 ??LYMPH?%,?AUTO?(%) 13 12 ??NEUTROPHILS,?AUTO?(Thou/mm3) 3.4 3.5 ??GLUCOSE,RANDOM?(mg/dL) 148?H 103 ??BLOOD?UREA?NITROGEN?(mg/dL) 7?L <?5?L ??CREATININE?(mg/dL) 0.70 0.70 ??SODIUM?(mmol/L) 141 139 ??POTASSIUM?(mmol/L) 3.8 3.8 ??CHLORIDE?(mmol/L) 105 103 ??CrCl?(CandG)?(ml/min) 94.75 95.11 ??AST/SGOT?(Unit/L) 17 <?8 ??ALT/SGPT?(Unit/L) 17 19 ??ALKALINE?PHOSPHATASE?(Unit/L) 51 48 ??BILIRUBIN,?TOTAL?(mg/dL) 0.6 0.5 ??PROTEIN?TOTAL?(gm/dl) 5.9 6.3 ??ALBUMIN,?SERUM?(gm/dl) 4.2 4.2 ??GLOBULIN?(gm/dl) 1.7?L 2.1?L ??ALBUMIN/GLOBULIN?RATIO 2.5?H 2.0 ??CALCIUM,?SERUM?(mg/dL) 8.7 9.4 ??CALCIUM?SERUM?(CORRECTED)?(mg/dL) 8.7 9.4 ASSESSMENT/PLAN:?Azeb Snow Assessment/Plan? Recurrent Breast Cancer Assessment: Patient has a history of breast cancer in 2009, treated with tamoxifen for 5 years and simple mastectomy without radiation. Current biopsy has confirmed tumor recurrence. Patient is undergoing neoadjuvant chemotherapy. There is a small millimeter lymph nodule in the liver and lungs, which is not believed to be cancerous at this time. The patient was previously undertreated, and the current treatment plan aims to be more comprehensive. Plan: - Continue current neoadjuvant chemotherapy regimen - After completion of chemotherapy: - Proceed with surgery (to be performed by Dr. Peters) - If surgery is successful in removing cancer, plan for radiation therapy - Initiate anti-endocrine therapy with CDK inhibitor (ribociclib) - Order Mercedes test - Perform EKG and echocardiogram prior to starting ribociclib - Conduct full body scan after completion of chemotherapy - Weekly Taxol treatments (12 in total) following the current chemotherapy regimen - Patient to use cold therapy (gloves and mittens) during Taxol infusions to prevent neuropathy - Monitor blood work before each treatmentORDERS: Order # Description ORDERS: Order # Description [id number] Follow Up 2 Months RETURN TO CLINIC: I reviewed the diagnosis, prognosis, and recommended treatment/procedure options with the patient (and/or their legal door to door sales representative), including the potential benefits, risks, side effects and alternative therapies. We also discussed the option of no treatment and the possibility of clinical trial participation, if applicable. All questions were addressed, and they demonstrated understanding. They provided informed consent to proceed with the proposed plan of care. BILLING AND COMPLIANCE: I reviewed external records from providers outside my specialty as summarized above. I spent a total of 50 minutes on this patient?s care on the day of their visit excluding time spent related to any billed procedures. This time includes time spent with the patient as well as time spent documenting in the medical record, reviewing patients records and tests, obtaining history, placing orders, communicating with other healthcare professionals, counseling the patient, family or caregiver, and/or care coordination for the diagnoses above. Electronically Signed by: Juwan Snow MD T: 8:44 PM CC: Kellee?Curtis,? PCP: Mary Akins Referring: Juwan Snow This document was completed utilizing speech recognition software. Grammatical errors, random word insertions, pronoun errors, and incomplete sentences are an occasional consequence of this system due to software limitations, ambient noise, and hardware issues. Any formal questions or concerns about the content, text or information contained within the body of this dictation should be directly addressed to the provider for clarification.
[2025-07-05 08:51] LABS: Basophils # (Auto) 0.0 Thou/mm3 (0.0-0.2); Basophils % (Auto) 0 % (0-2.5); Eosinophils # (Auto) 0.0 Thou/mm3 (0.0-0.5); Eosinophils % (Auto) 1 % (0-10); Hematocrit 29.1 % (36.0-46.0); Hemoglobin 9.9 g/dL (12.0-16.0); Immature Granulocytes Auto 0.07 Thou/mm3 (0.00-0.00); Lymphocytes # (Auto) 0.6 Thou/mm3 (1.0-4.8); Lymphocytes % (Auto) 13 % (10-50); Mean Corpuscular HGB Conc 34.0 g/dl (31.0-37.0); Mean Corpuscular Hemoglobin 33.6 pg (25.0-35.0); Mean Corpuscular Volume 99 fL (80-100); Monocytes # (Auto) 0.4 Thou/mm3 (0.0-0.8); Monocytes % (Auto) 8 % (0-12); Neutrophils # (Auto) 3.5 Thou/mm3 (1.8-7.7); Neutrophils % (Auto) 76 % (37-80); Nucleated Red Blood Cell # 0.00 Thou/mm3 (0.00-0.00); Nucleated Red Blood Cell % 0 /100 WBC (0); Platelet Count 299 Thou/mm3 (140-440); RDW Standard Deviation 62.7 fL (36.4-46.3); Red Blood Count 2.95 Miln/mm3 (4.00-5.20); White Blood Count 4.6 Thou/mm3 (3.6-11.0)
[2025-07-05 09:22] LABS: Alanine Aminotransferase 12 U/L (10-49); Albumin, Serum 4.0 gm/dL (3.4-4.8); Albumin/Globulin Ratio 2.4 (1.2-2.2); Alkaline Phosphatase 51 U/L (46-116); Anion Gap 10 (7-16); Aspartate Amino Transferase 17 U/L (0-34); BUN/Creatinine Ratio 10 Ratio (12-20); Bilirubin,Total 0.4 mg/dL (0.3-1.2); Blood Urea Nitrogen 6 mg/dL (9-23); Calcium 8.6 mg/dL (8.3-10.6); Calcium (Corrected) 8.6 mg/dL (8.5-10.1); Carbon Dioxide 25.3 mMol/L (20.0-31.0); Chloride 107 mMol/L (98-107); Creatinine (Component) 0.6 mg/dL (0.6-1.3); Globulin 1.7 gm/dL (2.3-3.5); Glucose 128 mg/dL (74-106); Osmolality,Calculated 282 (275-295); Potassium 3.8 mMol/L (3.4-5.1); Sodium 142 mMol/L (136-145); Total Protein 5.7 gm/dL (5.7-8.2); eGFR > 60 See Note
[2025-07-05 09:31] LABS: CA 15-3 7.8 U/mL (<32.4); Carcinoembryonic Antigen < 0.5 ng/mL (0.0-5.0)
[2025-07-11 09:44] LABS: Basophils # (Auto) 0.0 Thou/mm3 (0.0-0.2); Basophils % (Auto) 1 % (0-2.5); Eosinophils # (Auto) 0.0 Thou/mm3 (0.0-0.5); Eosinophils % (Auto) 1 % (0-10); Hematocrit 32.4 % (36.0-46.0); Hemoglobin 10.8 g/dL (12.0-16.0); Immature Granulocytes Auto 0.05 Thou/mm3 (0.00-0.00); Lymphocytes # (Auto) 0.4 Thou/mm3 (1.0-4.8); Lymphocytes % (Auto) 8 % (10-50); Mean Corpuscular HGB Conc 33.3 g/dl (31.0-37.0); Mean Corpuscular Hemoglobin 32.8 pg (25.0-35.0); Mean Corpuscular Volume 99 fL (80-100); Monocytes # (Auto) 0.3 Thou/mm3 (0.0-0.8); Monocytes % (Auto) 6 % (0-12); Neutrophils # (Auto) 4.3 Thou/mm3 (1.8-7.7); Neutrophils % (Auto) 83 % (37-80); Nucleated Red Blood Cell # 0.00 Thou/mm3 (0.00-0.00); Nucleated Red Blood Cell % 0 /100 WBC (0); Platelet Count 289 Thou/mm3 (140-440); RDW Standard Deviation 59.9 fL (36.4-46.3); Red Blood Count 3.29 Miln/mm3 (4.00-5.20); White Blood Count 5.1 Thou/mm3 (3.6-11.0)
[2025-07-11 10:12] LABS: Alanine Aminotransferase 14 U/L (10-49); Albumin, Serum 4.4 gm/dL (3.4-4.8); Albumin/Globulin Ratio 2.4 (1.2-2.2); Alkaline Phosphatase 54 U/L (46-116); Anion Gap 11 (7-16); Aspartate Amino Transferase 16 U/L (0-34); BUN/Creatinine Ratio 11 Ratio (12-20); Bilirubin,Total 0.6 mg/dL (0.3-1.2); Blood Urea Nitrogen 9 mg/dL (9-23); Calcium 9.1 mg/dL (8.3-10.6); Calcium (Corrected) 9.1 mg/dL (8.5-10.1); Carbon Dioxide 23.6 mMol/L (20.0-31.0); Chloride 103 mMol/L (98-107); Creatinine (Component) 0.8 mg/dL (0.6-1.3); Globulin 1.8 gm/dL (2.3-3.5); Glucose 141 mg/dL (74-106); Osmolality,Calculated 276 (275-295); Potassium 4.0 mMol/L (3.4-5.1); Sodium 138 mMol/L (136-145); Total Protein 6.2 gm/dL (5.7-8.2); eGFR > 60 See Note
[2025-07-11 10:13] LABS: Ferritin 460 ng/mL (7.3-270.7); Iron 28 mcg/dL (50-170); Percent Iron Saturation 10 % (20-55); Total Iron Binding Capacity 272 mcg/dL (250-425); Unsaturated Iron Binding 244 (225-295)
[2025-07-11 10:14] LABS: Folate 12.07 ng/mL (>5.38); Vitamin B12 777 pg/mL (211-911)
[2025-07-11 10:29] LABS: CA 15-3 8.6 U/mL (<32.4); Carcinoembryonic Antigen < 0.5 ng/mL (0.0-5.0)
[2025-07-18 09:10] LABS: Basophils # (Auto) 0.0 Thou/mm3 (0.0-0.2); Basophils % (Auto) 0 % (0-2.5); Eosinophils # (Auto) 0.0 Thou/mm3 (0.0-0.5); Eosinophils % (Auto) 0 % (0-10); Hematocrit 32.1 % (36.0-46.0); Hemoglobin 11.0 g/dL (12.0-16.0); Immature Granulocytes Auto 0.06 Thou/mm3 (0.00-0.00); Lymphocytes # (Auto) 0.5 Thou/mm3 (1.0-4.8); Lymphocytes % (Auto) 10 % (10-50); Mean Corpuscular HGB Conc 34.3 g/dl (31.0-37.0); Mean Corpuscular Hemoglobin 34.1 pg (25.0-35.0); Mean Corpuscular Volume 99 fL (80-100); Monocytes # (Auto) 0.3 Thou/mm3 (0.0-0.8); Monocytes % (Auto) 5 % (0-12); Neutrophils # (Auto) 4.3 Thou/mm3 (1.8-7.7); Neutrophils % (Auto) 84 % (37-80); Nucleated Red Blood Cell # 0.00 Thou/mm3 (0.00-0.00); Nucleated Red Blood Cell % 0 /100 WBC (0); Platelet Count 288 Thou/mm3 (140-440); RDW Standard Deviation 59.1 fL (36.4-46.3); Red Blood Count 3.23 Miln/mm3 (4.00-5.20); White Blood Count 5.2 Thou/mm3 (3.6-11.0)
[2025-07-18 09:30] LABS: Alanine Aminotransferase 12 U/L (10-49); Albumin, Serum 4.2 gm/dL (3.4-4.8); Albumin/Globulin Ratio 2.1 (1.2-2.2); Anion Gap 9 (7-16); Aspartate Amino Transferase 15 U/L (0-34); BUN/Creatinine Ratio 10 Ratio (12-20); Bilirubin,Total 0.5 mg/dL (0.3-1.2); Blood Urea Nitrogen 7 mg/dL (9-23); Calcium 9.2 mg/dL (8.3-10.6); Calcium (Corrected) 9.2 mg/dL (8.5-10.1); Carbon Dioxide 24.9 mMol/L (20.0-31.0); Chloride 106 mMol/L (98-107); Creatinine (Component) 0.7 mg/dL (0.6-1.3); Globulin 2.0 gm/dL (2.3-3.5); Glucose 116 mg/dL (74-106); Osmolality,Calculated 278 (275-295); Potassium 4.2 mMol/L (3.4-5.1); Sodium 140 mMol/L (136-145); Total Protein 6.2 gm/dL (5.7-8.2); eGFR > 60 See Note
[2025-07-18 09:44] LABS: Alkaline Phosphatase 52 U/L (46-116)
[2025-07-18 09:51] LABS: CA 15-3 9.7 U/mL (<32.4)
== END 2025-07-23 23:59 | disposition home or self-care (01) ==
LOC: SCTC 07:49
PROVIDERS: PCP Family Medicine; Referring Provider Family Medicine; Visit Provider Internal Medicine Hematology & Oncology
DX: Z51.11 Encounter for antineoplastic chemotherapy (principal); C50.811 Malignant neoplasm of overlapping sites of right female breast; Z17.0 Estrogen receptor positive status [ER+]; Z17.21 Progesterone receptor positive status; Z17.32 Human epidermal growth factor receptor 2 negative status; R91.1 Solitary pulmonary nodule; K76.89 Other specified diseases of liver
CPT/HCPCS: 36591; 80053; 82378; 82607; 82728; 82746; 83540; 83550; 85025; 86300; 96367; 96375; 96413; 99212; A4216; J1100; J1642; J2405; J3490; J7040; J7050; J9267; A9270; G0463

== ENCOUNTER 2025-08-23 07:56 | Outpatient (RCR) | payer BC, SELFPAY ==
[2025-07-25 10:03] LABS: Basophils # (Auto) 0.0 Thou/mm3 (0.0-0.2); Basophils % (Auto) 1 % (0-2.5); Eosinophils # (Auto) 0.0 Thou/mm3 (0.0-0.5); Eosinophils % (Auto) 0 % (0-10); Hematocrit 34.2 % (36.0-46.0); Hemoglobin 11.5 g/dL (12.0-16.0); Immature Granulocytes Auto 0.05 Thou/mm3 (0.00-0.00); Lymphocytes # (Auto) 0.5 Thou/mm3 (1.0-4.8); Lymphocytes % (Auto) 11 % (10-50); Mean Corpuscular HGB Conc 33.6 g/dl (31.0-37.0); Mean Corpuscular Hemoglobin 34.4 pg (25.0-35.0); Mean Corpuscular Volume 102 fL (80-100); Monocytes # (Auto) 0.2 Thou/mm3 (0.0-0.8); Monocytes % (Auto) 4 % (0-12); Neutrophils # (Auto) 3.7 Thou/mm3 (1.8-7.7); Neutrophils % (Auto) 84 % (37-80); Nucleated Red Blood Cell # 0.00 Thou/mm3 (0.00-0.00); Nucleated Red Blood Cell % 0 /100 WBC (0); Platelet Count 292 Thou/mm3 (140-440); RDW Standard Deviation 59.1 fL (36.4-46.3); Red Blood Count 3.34 Miln/mm3 (4.00-5.20); White Blood Count 4.5 Thou/mm3 (3.6-11.0)
[2025-07-25 12:54] LABS: Alanine Aminotransferase 19 U/L (10-49); Albumin, Serum 4.5 gm/dL (3.4-4.8); Albumin/Globulin Ratio 2.1 (1.2-2.2); Alkaline Phosphatase 55 U/L (46-116); Anion Gap 12 (7-16); Aspartate Amino Transferase 21 U/L (0-34); BUN/Creatinine Ratio 10 Ratio (12-20); Bilirubin,Total 0.6 mg/dL (0.3-1.2); Blood Urea Nitrogen 8 mg/dL (9-23); Calcium 9.2 mg/dL (8.3-10.6); Calcium (Corrected) 9.2 mg/dL (8.5-10.1); Carbon Dioxide 23.8 mMol/L (20.0-31.0); Chloride 104 mMol/L (98-107); Creatinine (Component) 0.8 mg/dL (0.6-1.3); Globulin 2.1 gm/dL (2.3-3.5); Glucose 129 mg/dL (74-106); Osmolality,Calculated 279 (275-295); Potassium 3.9 mMol/L (3.4-5.1); Sodium 140 mMol/L (136-145); Total Protein 6.6 gm/dL (5.7-8.2); eGFR > 60 See Note
[2025-08-01 11:53] LABS: Basophils # (Auto) 0.0 Thou/mm3 (0.0-0.2); Basophils % (Auto) 1 % (0-2.5); Eosinophils # (Auto) 0.0 Thou/mm3 (0.0-0.5); Eosinophils % (Auto) 1 % (0-10); Hematocrit 34.4 % (36.0-46.0); Hemoglobin 11.5 g/dL (12.0-16.0); Immature Granulocytes Auto 0.05 Thou/mm3 (0.00-0.00); Lymphocytes # (Auto) 0.8 Thou/mm3 (1.0-4.8); Lymphocytes % (Auto) 18 % (10-50); Mean Corpuscular HGB Conc 33.4 g/dl (31.0-37.0); Mean Corpuscular Hemoglobin 34.1 pg (25.0-35.0); Mean Corpuscular Volume 102 fL (80-100); Monocytes # (Auto) 0.2 Thou/mm3 (0.0-0.8); Monocytes % (Auto) 6 % (0-12); Neutrophils # (Auto) 3.1 Thou/mm3 (1.8-7.7); Neutrophils % (Auto) 74 % (37-80); Nucleated Red Blood Cell # 0.00 Thou/mm3 (0.00-0.00); Nucleated Red Blood Cell % 0 /100 WBC (0); Platelet Count 276 Thou/mm3 (140-440); RDW Standard Deviation 56.3 fL (36.4-46.3); Red Blood Count 3.37 Miln/mm3 (4.00-5.20); White Blood Count 4.2 Thou/mm3 (3.6-11.0)
[2025-08-01 12:26] LABS: Alanine Aminotransferase 18 U/L (10-49); Albumin, Serum 4.2 gm/dL (3.4-4.8); Albumin/Globulin Ratio 1.8 (1.2-2.2); Alkaline Phosphatase 54 U/L (46-116); Anion Gap 10 (7-16); Aspartate Amino Transferase 16 U/L (0-34); BUN/Creatinine Ratio 10 Ratio (12-20); Bilirubin,Total 0.5 mg/dL (0.3-1.2); Blood Urea Nitrogen 7 mg/dL (9-23); Calcium 9.2 mg/dL (8.3-10.6); Calcium (Corrected) 9.2 mg/dL (8.5-10.1); Carbon Dioxide 25.4 mMol/L (20.0-31.0); Chloride 105 mMol/L (98-107); Creatinine (Component) 0.7 mg/dL (0.6-1.3); Globulin 2.3 gm/dL (2.3-3.5); Glucose 111 mg/dL (74-106); Osmolality,Calculated 278 (275-295); Potassium 4.0 mMol/L (3.4-5.1); Sodium 140 mMol/L (136-145); Total Protein 6.5 gm/dL (5.7-8.2); eGFR > 60 See Note
[2025-08-08 10:06] LABS: Basophils # (Auto) 0.0 Thou/mm3 (0.0-0.2); Basophils % (Auto) 0 % (0-2.5); Eosinophils # (Auto) 0.0 Thou/mm3 (0.0-0.5); Eosinophils % (Auto) 0 % (0-10); Hematocrit 34.0 % (36.0-46.0); Hemoglobin 11.4 g/dL (12.0-16.0); Immature Granulocytes Auto 0.03 Thou/mm3 (0.00-0.00); Lymphocytes # (Auto) 0.5 Thou/mm3 (1.0-4.8); Lymphocytes % (Auto) 22 % (10-50); Mean Corpuscular HGB Conc 33.5 g/dl (31.0-37.0); Mean Corpuscular Hemoglobin 34.0 pg (25.0-35.0); Mean Corpuscular Volume 102 fL (80-100); Monocytes # (Auto) 0.2 Thou/mm3 (0.0-0.8); Monocytes % (Auto) 6 % (0-12); Neutrophils # (Auto) 1.7 Thou/mm3 (1.8-7.7); Neutrophils % (Auto) 70 % (37-80); Nucleated Red Blood Cell # 0.00 Thou/mm3 (0.00-0.00); Nucleated Red Blood Cell % 0 /100 WBC (0); Platelet Count 233 Thou/mm3 (140-440); RDW Standard Deviation 53.1 fL (36.4-46.3); Red Blood Count 3.35 Miln/mm3 (4.00-5.20); White Blood Count 2.4 Thou/mm3 (3.6-11.0)
[2025-08-08 10:34] LABS: Alanine Aminotransferase 20 U/L (10-49); Albumin, Serum 4.1 gm/dL (3.4-4.8); Albumin/Globulin Ratio 2.1 (1.2-2.2); Alkaline Phosphatase 52 U/L (46-116); Anion Gap 10 (7-16); Aspartate Amino Transferase 17 U/L (0-34); BUN/Creatinine Ratio 11 Ratio (12-20); Bilirubin,Total 0.4 mg/dL (0.3-1.2); Blood Urea Nitrogen 8 mg/dL (9-23); Calcium 9.0 mg/dL (8.3-10.6); Calcium (Corrected) 9.0 mg/dL (8.5-10.1); Carbon Dioxide 25.7 mMol/L (20.0-31.0); Chloride 105 mMol/L (98-107); Creatinine (Component) 0.7 mg/dL (0.6-1.3); Globulin 2.0 gm/dL (2.3-3.5); Glucose 139 mg/dL (74-106); Osmolality,Calculated 281 (275-295); Potassium 4.0 mMol/L (3.4-5.1); Sodium 141 mMol/L (136-145); Total Protein 6.1 gm/dL (5.7-8.2); eGFR > 60 See Note
[2025-08-08 10:52] LABS: CA 15-3 6.7 U/mL (<32.4)
[2025-08-15 10:20] LABS: Basophils # (Auto) 0.0 Thou/mm3 (0.0-0.2); Basophils % (Auto) 1 % (0-2.5); Eosinophils # (Auto) 0.0 Thou/mm3 (0.0-0.5); Eosinophils % (Auto) 0 % (0-10); Hematocrit 35.2 % (36.0-46.0); Hemoglobin 12.2 g/dL (12.0-16.0); Immature Granulocytes Auto 0.02 Thou/mm3 (0.00-0.00); Lymphocytes # (Auto) 0.7 Thou/mm3 (1.0-4.8); Lymphocytes % (Auto) 27 % (10-50); Mean Corpuscular HGB Conc 34.7 g/dl (31.0-37.0); Mean Corpuscular Hemoglobin 35.3 pg (25.0-35.0); Mean Corpuscular Volume 102 fL (80-100); Monocytes # (Auto) 0.2 Thou/mm3 (0.0-0.8); Monocytes % (Auto) 8 % (0-12); Neutrophils # (Auto) 1.6 Thou/mm3 (1.8-7.7); Neutrophils % (Auto) 63 % (37-80); Nucleated Red Blood Cell # 0.00 Thou/mm3 (0.00-0.00); Nucleated Red Blood Cell % 0 /100 WBC (0); Platelet Count 249 Thou/mm3 (140-440); RDW Standard Deviation 51.6 fL (36.4-46.3); Red Blood Count 3.46 Miln/mm3 (4.00-5.20); White Blood Count 2.6 Thou/mm3 (3.6-11.0)
[2025-08-15 10:42] LABS: Alanine Aminotransferase 22 U/L (10-49); Albumin, Serum 4.0 gm/dL (3.4-4.8); Albumin/Globulin Ratio 1.7 (1.2-2.2); Alkaline Phosphatase 55 U/L (46-116); Anion Gap 9 (7-16); Aspartate Amino Transferase 15 U/L (0-34); BUN/Creatinine Ratio 11 Ratio (12-20); Bilirubin,Total 0.5 mg/dL (0.3-1.2); Blood Urea Nitrogen 8 mg/dL (9-23); Calcium 9.1 mg/dL (8.3-10.6); Calcium (Corrected) 9.1 mg/dL (8.5-10.1); Carbon Dioxide 25.9 mMol/L (20.0-31.0); Chloride 104 mMol/L (98-107); Creatinine (Component) 0.7 mg/dL (0.6-1.3); Globulin 2.4 gm/dL (2.3-3.5); Glucose 101 mg/dL (74-106); Osmolality,Calculated 275 (275-295); Potassium 3.8 mMol/L (3.4-5.1); Sodium 139 mMol/L (136-145); Total Protein 6.4 gm/dL (5.7-8.2); eGFR > 60 See Note
[2025-08-15 10:58] LABS: CA 15-3 6.3 U/mL (<32.4)
[2025-08-22 14:20] LABS: Basophils # (Auto) 0.0 Thou/mm3 (0.0-0.2); Basophils % (Auto) 1 % (0-2.5); Eosinophils # (Auto) 0.0 Thou/mm3 (0.0-0.5); Eosinophils % (Auto) 0 % (0-10); Hematocrit 37.6 % (36.0-46.0); Hemoglobin 12.8 g/dL (12.0-16.0); Immature Granulocytes Auto 0.03 Thou/mm3 (0.00-0.00); Lymphocytes # (Auto) 0.6 Thou/mm3 (1.0-4.8); Lymphocytes % (Auto) 24 % (10-50); Mean Corpuscular HGB Conc 34.0 g/dl (31.0-37.0); Mean Corpuscular Hemoglobin 35.4 pg (25.0-35.0); Mean Corpuscular Volume 104 fL (80-100); Monocytes # (Auto) 0.2 Thou/mm3 (0.0-0.8); Monocytes % (Auto) 7 % (0-12); Neutrophils # (Auto) 1.6 Thou/mm3 (1.8-7.7); Neutrophils % (Auto) 67 % (37-80); Nucleated Red Blood Cell # 0.00 Thou/mm3 (0.00-0.00); Nucleated Red Blood Cell % 0 /100 WBC (0); Platelet Count 254 Thou/mm3 (140-440); RDW Standard Deviation 52.9 fL (36.4-46.3); Red Blood Count 3.62 Miln/mm3 (4.00-5.20); White Blood Count 2.4 Thou/mm3 (3.6-11.0)
[2025-08-22 14:41] LABS: Alanine Aminotransferase 26 U/L (10-49); Albumin, Serum 4.3 gm/dL (3.4-4.8); Albumin/Globulin Ratio 2.0 (1.2-2.2); Alkaline Phosphatase 54 U/L (46-116); Anion Gap 12 (7-16); Aspartate Amino Transferase 23 U/L (0-34); BUN/Creatinine Ratio 10 Ratio (12-20); Bilirubin,Total 0.4 mg/dL (0.3-1.2); Blood Urea Nitrogen 8 mg/dL (9-23); Calcium 8.8 mg/dL (8.3-10.6); Calcium (Corrected) 8.8 mg/dL (8.5-10.1); Carbon Dioxide 24.1 mMol/L (20.0-31.0); Chloride 105 mMol/L (98-107); Creatinine (Component) 0.8 mg/dL (0.6-1.3); Globulin 2.1 gm/dL (2.3-3.5); Glucose 122 mg/dL (74-106); Osmolality,Calculated 280 (275-295); Potassium 3.6 mMol/L (3.4-5.1); Sodium 141 mMol/L (136-145); Total Protein 6.4 gm/dL (5.7-8.2); eGFR > 60 See Note
[2025-08-22 14:57] LABS: CA 15-3 6.0 U/mL (<32.4)
== END 2025-08-23 23:59 | disposition home or self-care (01) ==
LOC: SCTC 07:56
PROVIDERS: PCP Family Medicine; Referring Provider Family Medicine; Visit Provider Internal Medicine Hematology & Oncology
DX: Z51.11 Encounter for antineoplastic chemotherapy (principal); C50.411 Malignant neoplasm of upper-outer quadrant of right female breast; Z17.0 Estrogen receptor positive status [ER+]; Z17.21 Progesterone receptor positive status; Z17.32 Human epidermal growth factor receptor 2 negative status
CPT/HCPCS: 36591; 80053; 85025; 86300; 96367; 96374; 96375; 96413; A4216; J1100; J1642; J1756; J2405; J2997; J3490; J7030; J7040; J7050; J9267; A9270